=== PATIENT | male | born 1995 | race Caucasian/White ===

== ENCOUNTER 2021-12-06 13:11 | Emergency (ER) | payer OTHER, SELFPAY | END 2021-12-06 15:35 | disposition home or self-care (01) | LOC: BURERS 13:11 | DX: S09.90XA Unspecified injury of head, initial encounter (principal); S93.401A Sprain of unspecified ligament of right ankle, initial encounter; S93.602A Unspecified sprain of left foot, initial encounter; V89.0XXA Person injured in unspecified motor-vehicle accident, nontraffic, initial encounter | CPT/HCPCS: 70450 ==

== ENCOUNTER 2022-01-14 10:42 | Emergency (ER) | payer SELFPAY ==
[2022-01-14] MEDS ORDERED: Albuterol 200 PUFF (6.7GM INHALER) ONE (11:24)
[2022-01-14] MEDS ORDERED: Ondansetron ODT 4 MG TAB ONE (11:24)
== END 2022-01-14 12:05 | disposition home or self-care (01) ==
LOC: BURERS 10:42
DX: J20.8 Acute bronchitis due to other specified organisms (principal); Z20.822 Contact with and (suspected) exposure to COVID-19; Z87.19 Personal history of other diseases of the digestive system
CPT/HCPCS: 71045; Q0162